=== PATIENT | female | born 1945 | race Caucasian/White ===

== ENCOUNTER 2019-10-28 19:33 | Emergency (ER) | payer MEDICARE ==
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
[2019-10-28] MEDS ORDERED: Ibuprofen 200 MG TAB ONE (21:23)
[2019-10-28] MEDS ORDERED: Adacel (T-DAP) 0.5 ML SYRINGE ONE (21:23)
== END 2019-10-28 21:46 | disposition home or self-care (01) ==
LOC: ERS 19:33
DX: S16.1XXA Strain of muscle, fascia and tendon at neck level, initial encounter (principal); S50.01XA Contusion of right elbow, initial encounter; E03.9 Hypothyroidism, unspecified; I10 Essential (primary) hypertension; Z79.899 Other long term (current) drug therapy; V69.9XXA Occupant (driver) (passenger) of heavy transport vehicle injured in unspecified traffic accident, initial encounter
CPT/HCPCS: 90471; 90715